=== PATIENT | female | born 1970 | race American Indian/Alaskan Native ===

== ENCOUNTER 2017-07-02 10:09 | Outpatient (CLI) | payer OTHER ==
--- NOTE | 2017-07-02 19:08 | XRay Report ---
FINAL REPORT EXAM: XR SPINE LUMBOSACRAL 2-3V HISTORY: FOUR HERNIATED DISC TECHNIQUE: Lumbar spine 2 views PRIORS: None. FINDINGS: Vertebral bodies demonstrate normal height and alignment. The disc spaces are within normal limits. There is no evidence of spondylolisthesis. Transverse and spinous processes are intact SI joints are unremarkable. IMPRESSION: Negative lumbar spine series
== END 2017-07-02 10:10 | disposition home or self-care (01) ==
LOC: XRAY 10:09
PROVIDERS: ATTEND Internal Medicine
DX: M51.26 Other intervertebral disc displacement, lumbar region (principal); I10 Essential (primary) hypertension; F82 Specific developmental disorder of motor function; T14.8XXA Other injury of unspecified body region, initial encounter; X58.XXXA Exposure to other specified factors, initial encounter; Y93.89 Activity, other specified; Y92.89 Other specified places as the place of occurrence of the external cause; Y99.8 Other external cause status
CPT/HCPCS: 72100

== ENCOUNTER 2018-07-16 18:01 | Emergency (ER) | payer OTHER ==
--- NOTE | 2018-07-16 18:15 | Emergency Department Report ---
Blank Doc - Documentation Documentation: This is a 48-year-old female that presents with left eye pain and redness. St ated has some swelling to left eyelid. Denies any trauma. This initial assessment/diagnostic orders/clinical plan/treatment(s) is/are subject to change based on patient's health status, clinical progression and re- assessment by fellow clinical providers in the ED. Further treatment and workup at subsequent clinical providers discretion. Patient/guardians urged not to elope from the ED as their condition may be serious if not clinically assessed and managed. Initial orders include: 1- Patient sent to [facility] for further evaluation and treatment 2- visual acuity/adamson lamp
[2018-07-16] MEDS ORDERED: BSS OU ONE (22:00)
[2018-07-16] MEDS ORDERED: FUL-GLO OP ONE (22:00)
[2018-07-16] MEDS ORDERED: TETRACAINE 0.5% OU ONE (22:00)
--- NOTE | 2018-07-16 23:20 | Emergency Department Report ---
Eye Injury/Foreign Body - HPI Duration: 3 Days Eye Location: Left Eye Symptoms: Eye Pain: Yes, Blurred Vision: No, Eye Redness: Yes, Grinding/Hammering Metal: No, Contact Lens Use: No Other History: Pt is a 48 yo female who presents to the ED with c/o left eye pain and erythema that began 3 days ago. She states she believes a piece of dog hair got in her eye. She has been frequently rubbing the left eye. She states she has noticed clear drainage. She does not wear contacts. She denies any vision problems. she states she last saw an eye doctor about 8 months ago. ED Review of Systems ROS: Stated complaint: EYE PAIN Other details as noted in HPI Comment: All other systems reviewed and negative ED Past Medical Hx - Past Medical History Hx Hypertension: Yes Hx CVA: Yes Hx Headaches / Migraines: Yes - Surgical History Hx Appendectomy: Yes Additional Surgical History: cyst, c- section x2 - Social History Smoking Status: Current Every Day Smoker Substance Use Type: Alcohol - Medications Home Medications: Home Medications Medication Instructions Recorded Confirmed Last Taken Type Erythromycin [Erythromycin Ophth 1.25 cm OS QID 5 Days #1 tube 07/16/18 Unknown Rx Oint] Eye Injury Exam - Exam General: Vital signs noted. No distress. Alert and acting appropriately. pt with left conjunctival injection, small amount of light green drainage, eye stained with fluroscein and evaluated under the adamson lamp, shows a small corneal abrasion on the iris of the left eye, no corneal ulceration, no foreign body, eye irrigated well with saline, EOMI, PERRL, no edema, no hordeolum ED Course Vital Signs 07/16/18 18:15 Temperature 100.0 F H Pulse Rate 118 H Respiratory 16 Rate Blood Pressure 158/70 O2 Sat by Pulse 99 Oximetry ED Medical Decision Making - Medical Decision Making Pt is a 48 yo female who presents to the ED with c/o left eye pain and erythema that began 3 days ago. She states she believes a piece of dog hair got in her eye. She has been frequently rubbing the left eye. She states she has noticed clear drainage. She does not wear contacts. She denies any vision problems. she states she last saw an eye doctor about 8 months ago. Pt with conjunctival injection and small amount of light green drainage, left eye stained with fluroscein and small corneal abrasion on the left iris visualized, no ulceration, no foreign body. Will give pt antibiotic eye ointment, will have pt follow up with ophthamology in the next 2-3 days. will have follow up with PCP in the next 2-3 days. Return to the emergency room for any new or worsening symptoms. - Differential Diagnosis corneal abrasion, conjunctivitis, foreign body, ulceration Critical care attestation.: If time is entered above; I have spent that time in minutes in the direct care of this critically ill patient, excluding procedure time. ED Disposition Clinical Impression: Corneal abrasion Qualifiers: Encounter type: initial encounter Laterality: left Qualified Code(s): S05.02XA - Injury of conjunctiva and corneal abrasion without foreign body, left eye, initial encounter Disposition: TO HOME OR SELFCARE Is pt being admited?: No Does the pt Need Aspirin: No Condition: Stable Instructions: Corneal Abrasion (ED) Additional Instructions: Please use antibiotic eye ointment as prescribed. Follow up with ophthalmology in the next 2-3 days. Follow up with PCP in the next 2-3 days. Return to the emergency room for any new or worsening symptoms. Prescriptions: Erythromycin [Erythromycin Ophth Oint] 1.25 cm OS QID 5 Days #1 tube [facility] - 2-3 Days JERSON CAAL MD [Staff Physician] - 2-3 Days Time of Disposition: 23:23 Print Language: PANAMANIAN
[2018-07-16 23:53] VITALS: BP 146/85
[2018-07-17] MEDS ORDERED: BSS ONE (01:06)
[2018-07-17] MEDS ORDERED: TETRACAINE 0.5% ONE (01:06)
[2018-07-17] MEDS ORDERED: FUL-GLO OP ONE (01:06)
== END 2018-07-16 23:30 | disposition home or self-care (01) ==
LOC: ED 18:01
DX: S05.02XA Injury of conjunctiva and corneal abrasion without foreign body, left eye, initial encounter (principal); I10 Essential (primary) hypertension; Z86.73 Personal history of transient ischemic attack (TIA), and cerebral infarction without residual deficits; G43.909 Migraine, unspecified, not intractable, without status migrainosus; F17.200 Nicotine dependence, unspecified, uncomplicated; Z90.89 Acquired absence of other organs; Z88.2 Allergy status to sulfonamides; X58.XXXA Exposure to other specified factors, initial encounter; Y93.89 Activity, other specified; Y92.89 Other specified places as the place of occurrence of the external cause; Y99.8 Other external cause status